=== PATIENT | male | born 1970 | race Caucasian/White ===

== ENCOUNTER 2016-11-16 18:44 | Emergency (ER) | payer MEDICAID ==
[2016-11-16 18:36] LABS: BLOOD UREA NITROGEN 6 mg/dL (9-23); CALCIUM SERUM 8.5 mg/dL (8.4-10.2); CARBON DIOXIDE 24 mmol/L (22-31); CHLORIDE 106 mmol/L (100-111); CREATININE SERUM 0.5 mg/dL (0.6-1.4); GLOM FILT RATE Estimated 129.1 mL/min (>60); GLUCOSE FASTING 99 mg/dL (70-110); POTASSIUM 3.7 mmol/L (3.5-5.1); SALICYLATE <4.0 mg/dL; SODIUM 143 mmol/L (135-145)
[2016-11-16 18:48] LABS: ACETAMINOPHEN <10 ug/mL
[2016-11-16 18:49] LABS: ALCOHOL BLOOD 413 mg/dL ([, 0])
== END 2016-11-17 14:04 ==
LOC: CED 18:44
PROVIDERS: Emergency Medicine
DX: F10.229 Alcohol dependence with intoxication, unspecified (principal)
CPT/HCPCS: 36415; 80048; 99285; G0480; J3411; J3475

== ENCOUNTER 2016-11-17 14:37 | Inpatient (IN) | payer MEDICAID ==
--- NOTE | ~2016-11-17 | HP ---
Unit #: [id number] #: [id number] Patient: JR HAQUE [id number] [place] [address] [id number] I MR#: [id number] NAME: JR HAQUE ROOM: [facility] Age: 46 Sex: M Admission Date: 11/17/2016 : 1970 Attending Physician: Jefry Pérez M.D. Admitting Physician: Jefry Pérez M.D. HISTORY AND PHYSICAL HISTORY OF PRESENT ILLNESS Jr is a 46 year old admitted to [facility] because of his continued abuse of alcohol. PAST MEDICAL HISTORY 1. Long history of alcohol abuse 2. Osteoarthritis 3. History of withdrawal seizures PAST SURGICAL HISTORY Appendectomy ALLERGIES No known drug allergies. SOCIAL HISTORY Dips a can of snuff every two to three days. Binge drinks at least a liter a day for 20 to 30 days and denies illicit drug use. FAMILY HISTORY Medically noncontributory. REVIEW OF SYSTEMS CONSTITUTIONAL: No fever or chills. HEENT: Denies any sore throat, ear pain or runny nose. CARDIOVASCULAR: Denies chest pain, irregular heart rhythm or palpitations. CHEST: Denies shortness of breath or cough. No hemoptysis. GASTROINTESTINAL: Denies nausea, vomiting, diarrhea or chronic constipation. ENDOCRINE: Denies history of increased thirst or urination. No recent significant weight loss or gain. GENITOURINARY: Denies dysuria, frequency, or hematuria. SKIN: Denies any rashes. HEMATOLOGIC: Denies history of increased bleeding or bruising. MUSCULOSKELETAL: Denies any hot, swollen joints. EXTREMITIES: He does report chronic knee pain. He denies recent injury. NEUROLOGIC: Denies problems with vision or speech. No frequent, severe headaches. No numbness, tingling or weakness in any extremities. Denies loss of bladder or bowel control. CURRENT MEDICATIONS 1. Detox protocol Unit #: [id number] #: [id number] Patient: JR HAQUE 2. Zestril 20 mg q day 3. Lexapro 10 mg q day 4. Trileptal 150 mg b.i.d. PHYSICAL EXAMINATION GENERAL: Alert, well-nourished, in no apparent distress. VITAL SIGNS: Blood pressure 138/90, heart rate 66, respirations 16, temperature 98.6. WEIGHT: 205 pounds. HEIGHT: 6'2". SKIN: Warm and dry without rash or lesion. HEENT: Normocephalic. TMs not viewed. Oral and nasal passages clear. Conjunctivae clear. Pupils equal, round and reactive to light and accommodation. Extraocular movements intact. NECK: Supple without lymphadenopathy or thyromegaly. HEART: Regular rate and rhythm without murmur. LUNGS: Clear. ABDOMEN: Soft, nontender. : Not done. EXTREMITIES: No evidence of cyanosis, clubbing or edema. Moves all extremities without focal deficit. NEUROLOGICAL: Grossly within normal limits. Cranial Nerves: II: Visual godinez are intact. III, IV AND : Extraocular movements are intact. Pupils are equal, round and reactive to light. V: Facial sensation is grossly normal. VII: Facial movements and expression are normal. VIII: Auditory acuity grossly intact. IX, X: Uvula is midline. Phonation is normal. XI: Patient shrugs shoulders and turns head normally. XII: Tongue protrudes in the midline. Sensory and Motor Function: Sensory and motor sensation is grossly normal. Motor: moves all extremities well. Coordination: Gait is normal. Deep Tendon Reflexes: Intact. IMPRESSION Psychiatric admission RECOMMENDATIONS PSYCHIATRIC: Per psychiatrist. MEDICAL: 1. I see no contraindications to participating in facility's activities. 2. Start Mobic 7.5 mg 1 p.o. q day. First dose now. MEDICAL PROGNOSIS Good. MEDICAL CONDITION Stable. Dictated by... Neela Su P.A.-C. for Yancy De Anda/atif Unit #: [id number] #: [id number] Patient: JR HAQUE TD: 11/19/2016 02:08 JOB #: [id number] HISTORY AND PHYSICAL Page 1 of 1 X Neela Su HISTORY AND PHYSICAL
--- NOTE | ~2016-11-17 | PN ---
Unit #: [id number] #: [id number] Patient: GABRIEL WELLER [id number] [facility] [address] [place] [address] [id number] I MR#: [id number] NAME: GABRIEL WELLER ROOM: [facility] Age: 46 Sex: M Admission Date: 11/17/2016 : 1970 Attending Physician: Jefry Pérez M.D. Admitting Physician: Yancy Bell PROGRESS NOTES DATE OF SERVICE 11/19/2016 DISCUSSION Mr. Weller is a 46-year-old white male with alcohol dependence who was seen today. Chart was reviewed and case was discussed with the staff. He has been anxious, restless, shaky, tremulous, and unstable on his daily functioning including personal hygiene though he stated that he is doing somewhat better than yesterday and that medicine has been helping him stay calm. He has been cooperative with treatment recommendations and has been taking the medications and tolerating them fairly well with no reported side effects. MENTAL STATUS EXAMINATION Middle-aged white male who is casually dressed with fair personal hygiene, appears to be in no acute distress or discomfort. He was awake and alert on interaction with intact orientation. His mood is anxious with a congruent affect. He denies any suicidal or homicidal ideations. His insight and judgment remain slightly impaired. TREATMENT PLAN 1. We will continue him on his current medications and treatment protocol. We will monitor his response to the medications and make further adjustments as needed. 2. We will continue to follow up. Dictated by... Yancy Bell/subha TD: 11/20/2016 11:20 JOB #: [id number] Unit #: [id number] #: [id number] Patient: GABRIEL WELLER PROGRESS NOTES Page 1 of 1 X Jefry Pérez MD PROGRESS NOTE
--- NOTE | ~2016-11-17 | CO ---
Unit #: [id number] #: [id number] Patient: GABRIEL HAQUE [id number] [place] [address] [id number] I MR#: [id number] NAME: GABRIEL HAQUE ROOM: [facility] Age: 46 Sex: M Admission Date: 11/17/2016 : 1970 Attending Physician: Jefry Pérez M.D. CONSULTATION REPORT SUBJECTIVE Gabriel is a 46-year-old who at time of admission complained of bilateral knee pain. He tells me that this pain is chronic. He denies any recent injury. He has been on Mobic in the past and is requesting this medication for his discomfort. He also reports multiple blisters along the bottom of his feet and heels. Nursing staff has asked us to examine and give recommendations. OBJECTIVE GENERAL: Alert, well nourished, in no apparent distress. VITAL SIGNS: Blood pressure 126/88, heart rate 70, respirations 16, temperature 98.6, weight 205, height 6 feet 2 inches. EXTREMITIES: No evidence of cyanosis, clubbing, or edema. Minimal chronic arthritic changes noted in both knees. No instability noted. SKIN: Warm and dry without rash. He has multiple blisters/blood blisters along the bottom of his feet and heels. There is no increased redness, swelling, heat, or pus noted. ASSESSMENT 1. Osteoarthritis. 2. Blisters on his feet. PLAN 1. Mobic 7.5 mg one p.o. daily. 2. Clean his feet with soap and water. Dictated by... Neela Su P.A.-C. for Yancy De Anda/jono TD: 11/19/2016 18:07 JOB #: [id number] Unit #: [id number] #: [id number] Patient: GABRIEL HAQUE CONSULTATION REPORT Page 1 of 1 X Neela Su CONSULTATION REPORT
--- NOTE | ~2016-11-17 | DS ---
Unit #: [id number] #: [id number] Patient: GABRIEL WELLER [id number] [facility] [place] [address] [id number] I MR#: [id number] NAME: GABRIEL WELLER ROOM: [facility] Age: 46 Sex: M Admission Date: 11/17/2016 : 1970 Discharge Date: 11/21/2016 Attending Physician: Jefry Pérez M.D. DISCHARGE SUMMARY IDENTIFYING DATA Mr. Weller is a 46-year-old single white male, who is a resident of [place], [place], and was self-referred to the hospital on a voluntary basis. DISCHARGE DIAGNOSES Psychiatric: Alcohol dependence, moderate and acute withdrawals; alcohol-induced mood disorder. Medical: None. Stressors: Moderate psychosocial stressors. HISTORY OF PRESENT ILLNESS Please see initial psychiatric evaluation for details. PAST PSYCHIATRIC HISTORY Please see initial psychiatric evaluation for details. PAST MEDICAL HISTORY Please see initial psychiatric evaluation for details. HOSPITAL COURSE The patient was admitted to the adult chemical dependency unit at [facility] and was oriented to the hospital environment. Routine p.r.n. medications were initiated, and he was started back on his home medications and detox protocol was initiated and he was closely monitored. He was taking the medications regularly and was tolerating them fairly well and was able to show a decent and therapeutic response and was able to come out of the detox without any complications and was willing to continue treatment on an outpatient basis and as such, it was decided that he will be discharged home and will continue treatment on an outpatient basis. DISCHARGE MEDICATIONS None. DISCHARGE CONDITION Stable. PROGNOSIS Fair. Dictated by... Jefry Pérez M.D. Unit #: [id number] #: [id number] Patient: GABRIEL WELLER IAA/modl TD: 11/21/2016 06:38 JOB #: [id number] DISCHARGE SUMMARY Page 1 of 1 X Jefry Pérez MD DISCHARGE SUMMARY
--- NOTE | ~2016-11-17 | PN ---
Unit #: [id number] #: [id number] Patient: GABRIEL WELLER [id number] [facility] [address] [place] [address] [id number] I MR#: [id number] NAME: GABIREL WELLER ROOM: [facility] Age: 46 Sex: M Admission Date: 11/17/2016 : 1970 Attending Physician: Jefry Pérez M.D. Admitting Physician: Yancy Bell PROGRESS NOTES DATE 11/18/2016 DISCUSSION Mr. Weller is a 46-year-old white male with alcohol dependence and mood disorder who was seen today and chart was reviewed and case was discussed with the staff. He has been anxious, withdrawn and seclusive to himself. Meanwhile, he has been cooperative with treatment recommendations and has been taking medications and tolerating them fairly well with no reported side effects. MENTAL STATUS EXAMINATION Middle-aged white male who was casually dressed with fair personal hygiene and appears to be in no acute distress or discomfort. He was awake and alert on interaction with intact orientation. His mood was anxious with congruent affect. His speech is slow and goal-directed. He denies any suicidal or homicidal ideation. His insight and judgement remains slightly impaired. TREATMENT PLAN 1. Will continue on his current treatment protocol. Will monitor his response to the medications and make further adjustments as needed. 2. Will continue to follow up. Dictated by... Jefry Pérez M.D. IAA/brandan TD: 11/19/2016 17:42 JOB #: [id number] Unit #: [id number] #: [id number] Patient: GABRIEL WELLER PROGRESS NOTES Page 1 of 1 X Jefry Pérez MD PROGRESS NOTE
--- NOTE | ~2016-11-17 | PN ---
Unit #: [id number] #: [id number] Patient: GABRIEL WELLER [id number] [facility] [address] [place] [address] [id number] I MR#: [id number] NAME: GABRIEL WELLER ROOM: [facility] Age: 46 Sex: M Admission Date: 11/17/2016 : 1970 Attending Physician: Jefry Pérez M.D. Admitting Physician: Yancy Bell PROGRESS NOTES DATE November 20, 2016 DISCUSSION Mr. Weller is a 46-year-old, white male with alcohol dependence mood disorder. He was seen today and chart was reviewed. His case was discussed with the staff. He has been anxious, withdrawn, and rather seclusive to himself and has been shaky and tremulous. Meanwhile, he has been taking the medications and tolerating them fairly well with no reported side effects. MENTAL STATUS EXAMINATION Middle-age, white male who was casually dressed with a fair personal hygiene and appears to be in no acute distress or discomfort. He was awake and alert on interaction with intact orientation. His mood is anxious with a congruent affect. He denies any suicidal or homicidal ideation. His insight and judgement remain slightly impaired. TREATMENT PLAN 1. We will continue his current treatment protocol. Will monitor his response to the medications and make further adjustments as needed. 2. Will continue to follow up. Dictated by... Yancy Bell/alison TD: 11/22/2016 07:18 JOB #: [id number] Unit #: [id number] #: [id number] Patient: GABRIEL WELLER PROGRESS NOTES Page 1 of 1 X Jefry Pérez MD PROGRESS NOTE
--- NOTE | ~2016-11-17 | CO ---
Unit #: [id number] #: [id number] Patient: JR HAQUE [id number] [facility] [address] [place] [address] [id number] I MR#: [id number] NAME: JR HAQUE ROOM: [facility] Age: 46 Sex: M Admission Date: 11/17/2016 : 1970 Attending Physician: Jefry Pérez M.D. Consultation Date: 11/19/2016 CONSULTATION REPORT SUBJECTIVE Jr is a 46-year-old who was noted to have an "abnormal urinalysis" on admission. After reviewing his admission urinalysis, he was found to have 3+ ketones. He was admitted for his continued abuse of alcohol and admits to poor hydration and nutrition when he drinks. Since admission, his appetite has been good, hydration adequate, and he has tolerated both. ASSESSMENT Positive ketones in his urine. Admission glucose is within normal limits. This is most likely secondary to his poor appetite because of his abuse of alcohol. PLAN With proper nutrition and hydration, this should self correct. Dictated by... Neela Su P.A.-C. for Yancy De Anda/jono TD: 11/22/2016 07:00 JOB #: [id number] CONSULTATION REPORT Page 1 of 1 X Neela Su CONSULTATION REPORT
--- NOTE | ~2016-11-17 | PA ---
Unit #: [id number] #: [id number] Patient: GABRIEL WELLER [id number] [facility] [address] [place] [address] [id number] I MR#: [id number] NAME: GABRIEL WELLER ROOM: [facility] Age: 46 Sex: M Admission Date: 11/17/2016 : 1970 Date of Assessment: 11/17/2016 Attending Physician: Jefry Pérez M.D. Admitting Physician: Jefry Pérez M.D. PSYCHIATRIC ASSESSMENT DATE OF SERVICE 11/17/2016. IDENTIFYING DATA Mr. Weller is a 46-year-old single white male, who is a resident of [place], [place] and was self-referred to the hospital on a voluntary basis. CHIEF COMPLAINT "I consumed an unknown amount of alcohol." HISTORY OF PRESENT ILLNESS Mr. Weller is a 46-year-old white male with history of alcohol dependence, who was transferred to us from [facility] where initial assessment was completed. The patient presented stating that he consumed an unknown amount of alcohol and that he believes that he has had 540 ounces of beer and mother transported him to the emergency room after she found how much he has drunk. The patient stated over the past few weeks, he has consumed large amounts of beer on daily basis and that he has been upset because he lost contact with his kids due to his alcoholism and reports that he has been having thoughts of harming himself and reports that he has struggled with alcohol addiction for the last 10 years and does have history of seizures during withdrawal from alcohol and was seen to be anxious, withdrawn, unkempt, disheveled with significant distress or discomfort, a possible detox, and was medically cleared in the emergency room and then was transferred to us. SUBSTANCE ABUSE HISTORY The patient reports history of alcohol dependence. Reports that he has been drinking since he was 14 years old and has been consuming large amounts of alcohol on daily basis and has been struggling to achieve any sobriety. PAST PSYCHIATRIC HISTORY The patient has a history of inpatient chemical dependency treatment at [facility] and few other facilities, and review of the medical records indicate that he is supposed to be on Lexapro and Trileptal, but has been noncompliant with medications and as such, has been decompensating. PAST MEDICAL HISTORY Significant for history of withdrawal seizures. ALLERGIES Unit #: [id number] #: [id number] Patient: GABRIEL WELLER No known medication allergies. PERSONAL AND SOCIAL HISTORY A 46-year-old white male, who reports that he is single, unemployed, and lives by himself and has a fairly decent, poor social support system. MENTAL STATUS EXAMINATION Middle-aged white male, who was casually dressed with fair personal hygiene, appears to be in no acute distress or discomfort. He was awake and alert on interaction with intact orientation to time, place, and person. His mood was anxious and depressed with a congruent affect. His speech was slow and restricted in content. He reports having suicidal ideations, but denies any homicidal ideations, and also denies any auditory or visual hallucinations. His insight and judgment remain significantly impaired. DIAGNOSTIC IMPRESSION Psychiatric: Alcohol dependence, moderate and acute withdrawals; alcohol-induced mood disorder. Medical: None. Stressors: Moderate psychosocial stressors. TREATMENT PLAN 1. The patient has presented with history of mood disorder and has been decompensating and will need inpatient hospitalization for detoxification, safety, and stabilization. We will start him back on his home medications. We will adjust his medications and monitor response. 2. Supportive therapy was provided to the patient. 3. Safe, structured, and nourishing environment will be provided. ESTIMATED LENGTH OF STAY 5 to 7 days. ABILITY TO HELP SELF Limited. WILLINGNESS TO HELP SELF The patient appears to be willing to help self. STRENGTHS 1. Communicative. 2. Cooperative. PROBLEMS 1. Chronic dysphoric symptoms. 2. Chronic chemical dependency. 3. Poor social support system. DISCHARGE CRITERIA This will be contingent upon the patient's ability to go through detox without having any significant withdrawal symptoms, the ability to stay safe to himself, particularly after discharge from the hospital. Dictated by... Jefry Pérez M.D. IAA/manoharl Unit #: [id number] #: [id number] Patient: GABRIEL WELLER TD: 11/18/2016 07:37 JOB #: [id number] PSYCHIATRIC ASSESSMENT Page 1 of 1 X ElisaJefry Lo MD X PSYCHIATRIC ASSESSMENT
[2016-11-18 09:36] LABS: BASOPHIL% 0.6 % (0-2.5); EOSINOPHIL# 0.2 X10e3 (0-0.7); EOSINOPHIL% 3.7 % (0.0-7.0); HEMATOCRIT 40.4 % (38.0-50.0); HEMOGLOBIN 13.3 gm/dL (13.0-16.0); LYMPHOCYTE# 1.4 X10e3 (1.0-3.5); LYMPHOCYTE% 26.4 % (17.0-45.0); MEAN CELL VOLUME 94.3 FL (83-96); MEAN CORPUSCULAR HGB CONC 32.9 g/dL (30-36); MEAN PLATELET VOLUME 9.7 FL (6.5-11.5); MONOCYTE# 0.4 X10e3 (0-1.0); MONOCYTE% 6.7 % (3.0-12.0); NEUTROPHIL# 3.3 X10e3 (1.5-7.1); NEUTROPHIL% 62.6 % (40-75); PLATELET COUNT 181 X10e3 (140-420); RED BLOOD COUNT 4.28 X10e (3.90-5.60); RED CELL DISTRIBUTION WIDTH 14.6 % (11.0-15.5); WHITE BLOOD COUNT 5.3 X10e3 (4.0-10.5)
[2016-11-18 09:43] LABS: DIFF IND NO
[2016-11-18 09:48] LABS: URINE APPEARANCE CLOUDY; URINE BLOOD NEG (NEG); URINE COLOR AMBER; URINE GLUCOSE NORM (NORM); URINE KETONE 3+ (NEG); URINE LEUKOCYTE ESTERASE NEG (NEG); URINE NITRATE NEG (NEG); URINE PROTEIN 1+ (NEG); URINE SPECIFIC GRAVITY 1.025 (1.003-1.035); URINE UROBILINOGEN NORM (NORM)
[2016-11-18 09:52] LABS: URINE BILIRUBIN NEG (NEG)
[2016-11-18 09:56] LABS: URINE AMORPHOUS SEDIMENT AMORP URATES; URINE SQUAMOUS EPITHELIAL CELL FEW /[HPF]
[2016-11-18 09:56] LABS: BILIRUBIN,TOTAL 1.3 mg/dL (0.2-2.0); CALCIUM SERUM 9.4 mg/dL (8.4-10.2); CREATININE SERUM 0.6 mg/dL (0.6-1.4); GLOM FILT RATE Estimated 119.8 mL/min (>60); PROTEIN TOTAL SERUM 6.7 g/dL (6.0-8.3)
[2016-11-18 10:25] LABS: AMPHETAMINE NEG (NEG); BARBITURATES NEG (NEG); BENZODIAZEPINES NEG (NEG); COCAINE NEG (NEG); MARIJUANA NEG (NEG); OPIATES NEG (NEG); TRICYCLIC ANTIDEPRESSANTS NEG (NEG); U METHADONE NEG (NEG)
== END 2016-11-22 12:55 | disposition home or self-care (01) | DRG 897 ==
LOC: P1E 14:37
PROVIDERS: Psychiatry & Neurology Psychiatry
PROC: HZ2ZZZZ Detoxification Services for Substance Abuse Treatment (ICD-10-PCS; principal; 2016-11-17)
DX: F10.230 Alcohol dependence with withdrawal, uncomplicated (principal); R45.851 Suicidal ideations; F10.24 Alcohol dependence with alcohol-induced mood disorder; M19.90 Unspecified osteoarthritis, unspecified site; S90.822A Blister (nonthermal), left foot, initial encounter; S90.821A Blister (nonthermal), right foot, initial encounter; X58.XXXA Exposure to other specified factors, initial encounter; M25.562 Pain in left knee; M25.561 Pain in right knee; R82.4 Acetonuria
CPT/HCPCS: 80053; 80307; 81003; 85025; 86592

== ENCOUNTER 2016-12-12 15:00 | Inpatient (IN) | payer MEDICAID ==
--- NOTE | ~2016-12-12 | PN ---
Unit #: [id number] #: [id number] Patient: GABRIEL WELLER [id number] [facility] [address] [place] [address] [id number] I MR#: [id number] NAME: GABRIEL WELLER ROOM: [facility] Age: 46 Sex: M Admission Date: 12/12/2016 : 1970 Attending Physician: Jefry Pérez M.D. Admitting Physician: Jefry Pérez M.D. Primary Care Physician: Primary Care Physician Estrellita WANG NOTES DATE OF SERVICE: 12/16/2016 SUBJECTIVE Mr. Weller is a 46-year-old white male, who was seen today and chart was reviewed, and case was discussed with the staff. He has been anxious, withdrawn, and rather seclusive to himself. Meanwhile, he has been cooperative with treatment recommendations and has been taking the medications and tolerating them fairly well with no reported side effects. MENTAL STATUS EXAMINATION Middle-aged white male, who was casually dressed with fair personal hygiene, appears to be in no acute distress or discomfort. He was awake and alert on interaction with intact orientation. His mood was anxious with a congruent affect. He denies any suicidal or homicidal ideations, and also denies any auditory or visual hallucinations. His insight and judgment remain slightly impaired. TREATMENT PLAN We will continue him on his current medications and treatment protocol. We will monitor his response and we will be enrolling him into the Vivitrol injection program . Dictated by... Yancy Bell/jono TD: 12/16/2016 13:07 JOB #: [id number] [facility] PROGRESS NOTES Page 1 of 1 X Jefry Pérez MD PROGRESS NOTE
--- NOTE | ~2016-12-12 | PN ---
Unit #: [id number] #: [id number] Patient: GABRIEL WELLER [id number] [facility] [address] [place] [address] [id number] I MR#: [id number] NAME: GABRIEL WELLER ROOM: [facility] Age: 46 Sex: M Admission Date: 12/12/2016 : 1970 Attending Physician: Jefry Pérez M.D. Admitting Physician: Jefry Pérez M.D. Primary Care Physician: Primary Care Physician Estrellita WANG NOTES DATE OF SERVICE 12/13/2016 DISCUSSION Mr. Weller is a 46-year-old white male who was seen today. Chart was reviewed and case was discussed with the staff. He has been anxious, withdrawn, and appears to be in distress or discomfort as he goes through detox. Meanwhile, he has been taking the medications and tolerating them fairly well with no reported side effects. MENTAL STATUS EXAMINATION Middle-aged white male who is casually dressed with fair personal hygiene, appears to be in no acute distress or discomfort. He was awake and alert on interaction with intact orientation. His mood is anxious with congruent affect. He denies any suicidal or homicidal ideations. His insight and judgment remain slightly impaired. TREATMENT PLAN 1. We will continue him on his current medications and treatment protocol. We will monitor his response to the medications and make further adjustments as needed. 2. We will continue to follow up. Dictated by... Jefry Pérez M.D. IAA/bzg TD: 12/13/2016 14:48 JOB #: [id number] [facility] PROGRESS NOTES Page 1 of 1 X Jefry Pérez MD PROGRESS NOTE
--- NOTE | ~2016-12-12 | PN ---
Unit #: [id number] #: [id number] Patient: GABRIEL WELLER [id number] [facility] [address] [place] [address] [id number] I MR#: [id number] NAME: GABRIEL WELLER ROOM: [facility] Age: 46 Sex: M Admission Date: 12/12/2016 : 1970 Attending Physician: Jefry Pérez M.D. Admitting Physician: Jefry Pérez M.D. Primary Care Physician: Primary Care Physician Estrellita WANG NOTES DATE December 15, 2016 DISCUSSION Mr. Weller is a 46-year-old white male, who was seen today and chart was reviewed and the case was discussed with the staff. He has been anxious, withdrawn, but has not shown any agitation, irritability, and has been cooperative with the treatment recommendations. He has been taking the medications and tolerating them fairly well with no reported side effects. MENTAL STATUS EXAMINATION Middle-aged white male, who was casually dressed with fair personal hygiene and appears to be in no acute distress or discomfort. He was awake and alert on interaction with intact orientation. His mood is anxious with a congruent affect. He denies any suicidal or homicidal ideations, and also denies any auditory or visual hallucinations. His insight and judgment remain slightly impaired. TREATMENT PLAN 1. We will continue him on his current medications and treatment protocol, and will monitor his response to the medications, and make further adjustments as needed. 2. We will continue to followup. Dictated by... Yancy Bell/joselyn TD: 12/16/2016 10:53 JOB #: [id number] Unit #: [id number] #: [id number] Patient: GABRIEL WELLER MELEGABRIELA PROGRESS NOTES Page 1 of 1 X Jefry Pérez MD PROGRESS NOTE
--- NOTE | ~2016-12-12 | DS ---
Unit #: [id number] #: [id number] [facility]: [facility] WELLER [id number] [facility] [address] [place] [address] [id number] MR#: [id number] NAME: GABRIEL WELLER ROOM: [facility] Age: 46 Sex: M Admission Date: 12/12/2016 : 1970 Discharge Date: 12/17/2016 Attending Physician: Jefry Pérez M.D. Primary Care Physician: Primary Care Physician No DISCHARGE SUMMARY IDENTIFYING DATA Mr. Weller is a 46-year-old white male, who is a resident of [place], [place], and is known to us from previous encounter, was self-referred to the hospital on a voluntary basis and with a blood alcohol level of 0.163. DISCHARGE DIAGNOSES Psychiatric: Alcohol dependence, moderate and acute withdrawals; alcohol-induced mood disorder. Medical: Hypertension. Stressors: Mild psychosocial stressors. HISTORY OF PRESENT ILLNESS Please see initial psychiatric evaluation for details. PAST PSYCHIATRIC HISTORY Please see initial psychiatric evaluation for details. PAST MEDICAL HISTORY Please see initial psychiatric evaluation for details. HOSPITAL COURSE The patient was admitted to the adult chemical dependency unit at [facility] karishma Davila and was oriented to the hospital environment. Routine p.r.n. medications were initiated, and he was started on the alcohol detox protocol and was closely monitored. He was very persistent on wanting to have the Vivitrol injection before he leaves and he stated that he keeps on relapsing and always has significantly cravings outside of the hospital and as such, after ruling out tolerability issues to the molecule of oral naltrexone, he was given Vivitrol injection and social service manager were also able to get him into long-term rehab level of care and as such, it was decided that he will be discharged home and will continue treatment on an outpatient basis. DISCHARGE MEDICATIONS Vivitrol 380 mg once every 30 days. DISCHARGE CONDITION Stable. PROGNOSIS Fair. Unit #: [id number] #: [id number] Patient: GABRIEL WELLER Dictated by... Yancy Bell/jono TD: 12/17/2016 06:36 JOB #: [id number] DISCHARGE SUMMARY Page 1 of 1 X Jefry Pérez MD DISCHARGE SUMMARY
--- NOTE | ~2016-12-12 | PA ---
Unit #: [id number] #: [id number] Patient: [facility]EL WELLER [id number] [facility] [address] [place] [address] [id number] MR#: [id number] NAME: GABRIEL WELLER ROOM: P179 Age: 46 Sex: M Admission Date: 12/12/2016 : 1970 Date of Assessment: Attending Physician: Jefry Pérez M.D. Admitting Physician: Jefry Pérez M.D. PSYCHIATRIC ASSESSMENT DATE OF SERVICE 12/12/2016. IDENTIFYING DATA Mr. Weller is a 46-year-old white male, who is a resident of [place], [place], and is known to us from previous encounter, was self-referred to the hospital on a voluntary basis with a blood alcohol level of 0.163. CHIEF COMPLAINT "I have been drinking half a pint of vodka." HISTORY OF PRESENT ILLNESS Mr. Weller is a 46-year-old white male, who was self-referred to the hospital reporting increasing depression and alcohol abuse and isolating himself with disturbed sleep and appetite, poor energy level, psychomotor retardation, inability to function or perform activities of daily living, and take care of his personal hygiene. He reports that he has been drinking half a pint of vodka and reports that he drinks between a pint and a fifth of vodka on a daily basis and has been in his hometown which has been a trigger and reports that he had a court date on 11/28/2016 due to public intoxication and has a history of withdrawal seizures and a history of significant withdrawals and delirium tremens in the past and was seen to be anxious, withdrawn, unkempt, disheveled, and reports increasing depression, anxiety, irritability, restlessness, and feelings of hopelessness and helplessness, but denies any suicidal ideations, intent, or plan. SUBSTANCE ABUSE HISTORY The patient has a history of alcohol dependence and reports that he has been drinking since he was 12 years old and currently has been drinking a liter of alcohol on a daily basis. He denies any other drug abuse. PAST PSYCHIATRIC HISTORY The patient has had a history of multiple inpatient chemical dependency treatments including being at [facility], at [facility], and at [facility], and review of the medical records indicate that currently he is not active in any treatment program, though he is supposed to be on Trileptal and Lexapro; however, it is not clear if he has been compliant with the medications as he does not appear to be showing a therapeutic response. PAST MEDICAL HISTORY Unit #: [id number] #: [id number] Patient: GABRIEL WELLER Significant for hypertension. ALLERGIES No known medication allergies. PERSONAL AND SOCIAL HISTORY A 46-year-old white male, who reports that he is single, unemployed, and lives alone and has poor social support system. MENTAL STATUS EXAMINATION Middle-aged white male, who was casually dressed with fair personal hygiene, appears to be in no acute distress or discomfort. He was awake and alert on interaction with intact orientation to time, place, and person. His mood was anxious and depressed with a congruent affect. His speech was slow and restricted in content. His thought processes were disorganized with some looseness of associations and suicidal ideations. His insight and judgment remain significantly impaired. DIAGNOSTIC IMPRESSION Psychiatric: Alcohol dependence, moderate, in acute withdrawals and alcohol-induced mood disorder. Medical: Hypertension. Stressors: Moderate psychosocial stressors. TREATMENT PLAN 1. The patient has presented with a history of substance abuse and mood disorder and has been decompensating and will need inpatient hospitalization for detoxification, safety, and stabilization. We will start him on detox protocol. We will closely monitor for any worsening withdrawal symptoms. 2. Supportive therapy was provided to the patient. 3. Safe, structured, and nourishing environment will be provided. ESTIMATED LENGTH OF STAY 5 to 7 days. ABILITY TO HELP SELF Limited. WILLINGNESS TO HELP SELF The patient appears to be willing to help self. STRENGTHS 1. Communicative. 2. Cooperative. PROBLEMS 1. Chronic chemical dependency. 2. Chronic dysphoric symptoms. 3. Poor social support system. DISCHARGE CRITERIA This will be contingent upon the patient's ability to go through detox without having any significant withdrawal symptoms and his ability to stay safe to himself, particularly after discharge from the hospital. Dictated by... Unit #: [id number] #: [id number] Patient: GABRIEL WELLER Yancy Bell/jono TD: 12/13/2016 14:10 JOB #: [id number] PSYCHIATRIC ASSESSMENT Page 1 of 1 X Jefry Pérez MD PSYCHIATRIC ASSESSMENT
--- NOTE | ~2016-12-12 | PN ---
Unit #: [id number] #: [id number] Patient: GABRIEL WELLER [id number] [facility] [address] [place] [address] [id number] MR#: [id number] NAME: GABRIEL WELLER ROOM: [facility] Age: 46 Sex: M Admission Date: 12/12/2016 : 1970 Attending Physician: Jefry Pérez M.D. Admitting Physician: Jefry Pérez M.D. Primary Care Physician: Primary Care Physician Estrellita WANG NOTES DATE December 14, 2016 DISCUSSION Mr. Weller is a 46-year-old white male who was seen today, chart was reviewed and case was discussed with the staff. He has been anxious, withdrawn and rather seclusive to himself. Meanwhile, he has been cooperative with treatment recommendations and has been taking medications and tolerating them fairly well with no reported side effects. MENTAL STATUS EXAMINATION Middle age white male who was casually dressed with fair personal hygiene and appears to be in no acute distress or discomfort. He was awake and alert with impaired attention and concentration. Mood was anxious with a congruent affect. He denies any suicidal or homicidal ideation. His insight and judgment remain slightly impaired. TREATMENT PLAN Will continue on his current medications and treatment protocol. We will monitor his response and make further adjustments as needed. We will continue to follow up. Dictated by... Yancy Bell/ada TD: 12/15/2016 11:40 JOB #: [id number] [facility] PROGRESS NOTES Page 1 of 1 X Jefry Pérez MD PROGRESS NOTE
--- NOTE | ~2016-12-12 | HP ---
Unit #: [id number] #: [id number] Patient: JR HAQUE [id number] [facility] [address] [place] [address] [id number] MR#: [id number] NAME: JR HAQUE ROOM: [facility] Age: 46 Sex: M Admission Date: 12/12/2016 : 1970 Attending Physician: Jefry Pérez M.D. Admitting Physician: Jefry Pérez M.D. Primary Care Physician: Primary Care Physician No HISTORY AND PHYSICAL NOTE Jr is a 46 year old admitted to [facility] because of his continued abuse of alcohol. The patient was seen and H and P dated 11/18/2016 was reviewed. This is current. No changes. Please see H and P dated 11/18/2016. Dictated by... Neela Su P.A.-C. for Yancy De Anda/atif TD: 12/12/2016 21:22 JOB #: [id number] HISTORY AND PHYSICAL Page 1 of 1 X Neela Su HISTORY AND PHYSICAL
[2016-12-13 09:28] LABS: BASOPHIL% 0.6 % (0-2.5); EOSINOPHIL# 0.2 X10e3 (0-0.7); EOSINOPHIL% 3.2 % (0.0-7.0); HEMATOCRIT 37.9 % (38.0-50.0); HEMOGLOBIN 12.5 gm/dL (13.0-16.0); LYMPHOCYTE% 34.1 % (17.0-45.0); MEAN CELL VOLUME 94.6 FL (83-96); MEAN CORPUSCULAR HEMOGLOBIN 31.2 PG (28-34); MEAN PLATELET VOLUME 9.3 FL (6.5-11.5); MONOCYTE# 0.7 X10e3 (0-1.0); MONOCYTE% 11.4 % (3.0-12.0); NEUTROPHIL% 50.7 % (40-75); PLATELET COUNT 170 X10e3 (140-420); RED CELL DISTRIBUTION WIDTH 15.9 % (11.0-15.5); WHITE BLOOD COUNT 5.9 X10e3 (4.0-10.5)
[2016-12-13 09:46] LABS: DIFF IND NO
[2016-12-13 09:55] LABS: BUN/CREATININE RATIO 26.66; CALCIUM SERUM 9.2 mg/dL (8.4-10.2); CREATININE SERUM 0.6 mg/dL (0.6-1.4); GLOM FILT RATE Estimated 119.8 mL/min (>60); POTASSIUM 4.2 mmol/L (3.5-5.1); PROTEIN TOTAL SERUM 6.6 g/dL (6.0-8.3)
[2016-12-14 11:23] LABS: URINE APPEARANCE CLEAR; URINE BILIRUBIN NEG (NEG); URINE BLOOD NEG (NEG); URINE COLOR YELLOW; URINE GLUCOSE NEG (NEG); URINE KETONE NEG (NEG); URINE LEUKOCYTE ESTERASE NEG (NEG); URINE NITRATE NEG (NEG); URINE PH 5.5 (5-8); URINE PROTEIN NEG (NEG); URINE SPECIFIC GRAVITY 1.011 (1.003-1.035); URINE UROBILINOGEN 0.2 MG/DL (NEG)
[2016-12-14 12:06] LABS: AMPHETAMINE NEG (NEG); BARBITURATES NEG (NEG); BENZODIAZEPINES POS (NEG); COCAINE NEG (NEG); MARIJUANA NEG (NEG); OPIATES NEG (NEG); TRICYCLIC ANTIDEPRESSANTS NEG (NEG); U METHADONE NEG (NEG)
== END 2016-12-17 12:30 | disposition home or self-care (01) | DRG 897 ==
LOC: P1E 17:13
PROVIDERS: Psychiatry & Neurology Psychiatry
PROC: HZ2ZZZZ Detoxification Services for Substance Abuse Treatment (ICD-10-PCS; principal; 2016-12-12)
DX: F10.239 Alcohol dependence with withdrawal, unspecified (principal); F10.24 Alcohol dependence with alcohol-induced mood disorder; F17.290 Nicotine dependence, other tobacco product, uncomplicated
CPT/HCPCS: 80053; 80307; 81003; 85025; 86592